=== PATIENT | female | born 1990 | race Caucasian/White ===

== ENCOUNTER 2016-12-01 16:57 | Emergency (ER) | payer OTHER ==
[~2016-12-01 16:57] MED LIST: COLACE100 MG PO; IBUPROFEN600 MG PO; NORCO 5-325 TA1 EACH PO; PRENATABS FA T1 EACH PO
[2016-12-01 19:40] LABS: RED BLOOD COUNT 4.91 M/UL (4.00-5.10); WHITE BLOOD COUNT 8.5 K/UL (4.5-11.0)
[2016-12-01 19:55] LABS: BUN/CREATININE RATIO 16 (0-10)
== END 2016-12-01 23:08 | disposition home or self-care (01) ==
LOC: ER1 16:57
PROVIDERS: Specialist/Technologist Athletic Trainer
DX: R55 Syncope and collapse (principal); F32.9 Major depressive disorder, single episode, unspecified; F41.9 Anxiety disorder, unspecified; K58.9 Irritable bowel syndrome, unspecified; F17.210 Nicotine dependence, cigarettes, uncomplicated; Z79.899 Other long term (current) drug therapy
CPT/HCPCS: 36415; 71010; 80053; 81001; 82962; 84703; 85025; 93005; 96360; 96361; 99284